=== PATIENT | male | born 1995 | race Hispanic/Latino ===

== ENCOUNTER → 2017-04-14 | Outpatient (CLI) | payer OTHER ==
[~2017-04-14] MED LIST: KETO10 PO; ONDA4TAB4 PO; TAMS-1 PO
== END | disposition home or self-care (01) ==
LOC: RAH 16:56
PROVIDERS: ATTEND Urology
DX: N20.2 Calculus of kidney with calculus of ureter (principal); M47.895 Other spondylosis, thoracolumbar region
CPT/HCPCS: 74018; 76100

== ENCOUNTER 2017-04-15 10:52 | Day surgery (SDC) | payer OTHER ==
[2017-04-15] VITALS (18 sets, daily range): BP systolic 109–127; BP diastolic 59–76
[~2017-04-15] VITALS: Ht 181.6 cm; Wt 103.9 kg
[2017-04-15] MEDS ORDERED: WATER FOR INJECTION,STERILE 20 ML VIAL ONE (13:01)
[2017-04-15] MEDS ORDERED: LACTATED RINGERS 1000ML 1,000 ML IV ONE (13:01)
[2017-04-15] MEDS: CEFAZOLIN SODIUM 1 GM VIAL ONE ×2 (13:15→15:20)
[2017-04-15] MEDS ORDERED: LACTATED RINGERS 1000ML 1,000 ML IV SCH (14:30)
[2017-04-15] MEDS ORDERED: ONDANSETRON HCL 4 MG/2 ML VIAL ONE (15:16)
[2017-04-15] MEDS ORDERED: DEXAMETHASONE SOD PHOSPHATE 10MG/ML 1ML VIAL ONE (15:16)
[2017-04-15] MEDS ORDERED: LIDOCAINE PF 2% 5ML ABBOJECT ONE (15:16)
[2017-04-15] MEDS ORDERED: GLYCOPYRROLATE 0.2 MG/ML 5 ML VIAL ONE (15:16)
[2017-04-15] MEDS ORDERED: PROPOFOL 10 MG/ML 20ML VIAL IV ONE (15:17)
[2017-04-15] MEDS ORDERED: MIDAZOLAM HCL 1 MG/ML 2ML VIAL ONE (15:17)
[2017-04-15] MEDS ORDERED: FENTANYL CITRATE PF 50 MCG/1 ML 2ML VIAL ONE (15:18)
== END 2017-04-15 18:15 | disposition home or self-care (01) ==
LOC: SUH 10:52 → DAH 10:52 → SUH 18:15
PROVIDERS: ATTEND Urology
DX: N20.2 Calculus of kidney with calculus of ureter (principal); Z98.890 Other specified postprocedural states
CPT/HCPCS: 50590; 74018; J0690; J1100; J2001; J2250; J2405; J2704; J3010; J3490; J7120

== ENCOUNTER → 2017-04-18 | Outpatient (CLI) | payer OTHER | END | disposition home or self-care (01) | LOC: RAH 13:13 | PROVIDERS: ATTEND Urology | DX: N20.2 Calculus of kidney with calculus of ureter (principal); K59.00 Constipation, unspecified | CPT/HCPCS: 74018; 76100 ==

== ENCOUNTER 2017-04-22 05:54 | Day surgery (SDC) | payer OTHER ==
[2017-04-21 15:00] VITALS: BP 152/70
[~2017-04-22] VITALS: Ht 180.3 cm; Wt 107.7 kg
[2017-04-22] VITALS (18 sets, daily range): BP systolic 99–120; BP diastolic 51–70
[2017-04-22] MEDS: CEFAZOLIN SODIUM 1 GM VIAL IVP SCH ×2 (06:00→07:00)
[2017-04-22] MEDS: LACTATED RINGERS 1000ML 1,000 ML IV SCH ×2 (06:44→07:00)
[2017-04-22] MEDS ORDERED: PROPOFOL 10 MG/ML 20ML VIAL IV ONE (06:50)
[2017-04-22] MEDS ORDERED: ONDANSETRON HCL 4 MG/2 ML VIAL ONE (06:50)
[2017-04-22] MEDS ORDERED: GLYCOPYRROLATE 0.2 MG/ML 5 ML VIAL ONE (06:50)
[2017-04-22] MEDS ORDERED: DEXAMETHASONE SOD PHOSPHATE 10MG/ML 1ML VIAL ONE (06:50)
[2017-04-22] MEDS ORDERED: SUCCINYLCHOLINE 200MG/10ML SYR ONE (06:50)
[2017-04-22] MEDS ORDERED: MIDAZOLAM HCL 1 MG/ML 2ML VIAL ONE (06:50)
[2017-04-22] MEDS ORDERED: NEOSTIGMINE METHYLSULFATE 1MG/ML IV ONE (06:50)
[2017-04-22] MEDS ORDERED: LIDOCAINE PF 2% 5ML ABBOJECT ONE (06:50)
[2017-04-22] MEDS ORDERED: FENTANYL CITRATE PF 50 MCG/1 ML 2ML VIAL ONE ×2 (06:51→07:12)
[2017-04-22] MEDS ORDERED: ISOVUE-370 50ML VIAL IV ONE (07:05)
[2017-04-22] MEDS ORDERED: SODIUM CHLORIDE 0.9% 10 ML VIAL ONE (07:31)
[2017-04-22] MEDS ORDERED: PHENYLEPHRINE HCL 10 MG/ML 1ML VIAL IV ONE (07:31)
[2017-04-22] MEDS ORDERED: ACETAMINOPHEN-CODEINE 300/30MG TAB ONE (09:23)
[2017-04-22] MEDS ORDERED: ACETAMINOPHEN-CODEINE 300/30MG TAB PO PRN (09:30)
== END 2017-04-22 10:01 | disposition home or self-care (01) ==
LOC: DAH 05:54
PROVIDERS: ATTEND Urology
DX: N20.1 Calculus of ureter (principal); E66.9 Obesity, unspecified; Z98.890 Other specified postprocedural states
CPT/HCPCS: 52332; 74420; A4218; A4358; A4600; A5113; C1758; C1769; C2617; J0330; J0690; J1100; J2001; J2250; J2370; J2405; J2704; J2710; J3010 ×2; J3490; J7120; Q9967

== ENCOUNTER → 2017-05-08 | Outpatient (CLI) | payer OTHER ==
[~2017-05-08] MED LIST changes: -KETO10 PO; -ONDA4TAB4 PO
== END | disposition home or self-care (01) ==
LOC: LAB 14:08
PROVIDERS: ATTEND Urology
DX: N20.0 Calculus of kidney (principal)
CPT/HCPCS: 81099

== ENCOUNTER 2018-07-04 07:28 | Emergency (ER) | payer OTHER ==
[2018-07-04] MEDS ORDERED: ONDANSETRON HCL 4 MG/2 ML VIAL ONE (07:56)
[2018-07-04] MEDS ORDERED: KETOROLAC TROMETHAMINE 30MG/ML ONE (07:56)
[2018-07-04 07:57] LABS: EOSINOPHILS % (AUTO) 9.1 % (0.0-8.0); HEMATOCRIT 43.8 % (42-54); LYMPHOCYTES % (AUTO) 27.1 % (21.0-51.0); MEAN CORPUSCULAR HEMOGLOBIN 29.7 pg (27.0-33.0); MEAN CORPUSCULAR HGB CONC 33.5 g/dL (32.0-36.0); MEAN CORPUSCULAR VOLUME 88.5 fL (80-100); MONOCYTES % (AUTO) 7.7 % (3.0-13.0); NEUTROPHILS % (AUTO) 55.1 % (40.0-77.0); PLATELET COUNT (AUTO) 278 K/uL (130-400); RED BLOOD CELL COUNT(AUTO) 4.95 MIL/uL (4.50-6.20); RED CELL DISTRIBUTION WIDTH 13.8 % (11.0-15.5)
[2018-07-04 08:02] LABS: APPEARANCE,URINE Clear (CLEAR); BILIRUBIN,URINE Negative (NEGATIVE); COLOR,URINE Yellow (YELLOW); GLUCOSE, URINE (UA) Negative (NEGATIVE); KETONES,URINE Negative (NEGATIVE); LEUKOCYTE ESTERASE ,URINE Negative (NEGATIVE); NITRATE,URINE Negative (NEGATIVE); OCCULT BLOOD,URINE Large (NEGATIVE); PROTEIN,URINE Negative (NEGATIVE)
[2018-07-04 08:08] LABS: CREATININE 0.9 mg/dL (0.5-1.5); POTASSIUM 3.7 mmol/L (3.5-5.1)
[2018-07-04 08:11] LABS: PARTIAL THROMBOPLASTIN TIME 30.8 SEC (26.3-35.5); PROTHROMBIN TIME 10.5 SEC (9.6-11.6)
[2018-07-04 08:14] LABS: ALBUMIN 3.9 g/dL (3.5-5.0); TOTAL PROTEIN, SERUM 7.6 g/dL (6.0-8.3)
[2018-07-04] MEDS ORDERED: TAMSULOSIN HCL 0.4 MG CAP.ER.24H ONE (08:34)
[2018-07-04] MEDS ORDERED: TRAMADOL HCL 50 MG TABLET ONE (08:37)
[2018-07-04 08:46] LABS: BACTERIA,URINE Rare /HPF (None Seen); RBC,URINE 26-50 /HPF (0-1)
[2018-07-04 08:47] LABS: WBC,URINE 0-1 /HPF (0-1)
[2018-07-04 08:48] LABS: SQUAMOUS EPITHELIAL CELL,UR None Seen /HPF (0-2)
== END 2018-07-04 09:19 | disposition home or self-care (01) ==
LOC: EDH 07:28
DX: N20.1 Calculus of ureter (principal); E79.0 Hyperuricemia without signs of inflammatory arthritis and tophaceous disease; Z88.1 Allergy status to other antibiotic agents
CPT/HCPCS: 36415; 74176; 80053; 81001; 82150; 83690; 84550; 85025; 85610; 85730; 96374; 96375; 99284; J1885; J2405

== ENCOUNTER 2018-07-29 17:17 | Emergency (ER) | payer OTHER ==
[2018-07-29] MEDS ORDERED: KETOROLAC TROMETHAMINE 30MG/ML ONE (17:32)
[2018-07-29] MEDS ORDERED: ONDANSETRON HCL 4 MG/2 ML VIAL ONE (17:32)
[2018-07-29 17:58] LABS: BASOPHILS % (AUTO) 0.2 % (0.0-5.0); EOSINOPHILS % (AUTO) 0.5 % (0.0-8.0); MEAN CORPUSCULAR HEMOGLOBIN 29.8 pg (27.0-33.0); MEAN CORPUSCULAR HGB CONC 34.5 g/dL (32.0-36.0); MEAN CORPUSCULAR VOLUME 86.6 fL (80-100); MONOCYTES % (AUTO) 3.8 % (3.0-13.0); NEUTROPHILS % (AUTO) 88.5 % (40.0-77.0); NUCLEATED RED BLOOD CELLS 0.1 % (0.0-0.19); PLATELET COUNT (AUTO) 296 K/uL (130-400); RED BLOOD CELL COUNT(AUTO) 5.19 MIL/uL (4.50-6.20); RED CELL DISTRIBUTION WIDTH 13.5 % (11.0-15.5); WHITE BLOOD COUNT (AUTO) 12.8 K/uL (4.8-10.8)
[2018-07-29 18:15] LABS: CREATININE 0.9 mg/dL (0.5-1.5); POTASSIUM 3.9 mmol/L (3.5-5.1)
[2018-07-29 18:34] LABS: APPEARANCE,URINE Clear (CLEAR); BILIRUBIN,URINE Negative (NEGATIVE); COLOR,URINE Yellow (YELLOW); GLUCOSE, URINE (UA) Negative (NEGATIVE); KETONES,URINE 15 mg/dL (NEGATIVE); LEUKOCYTE ESTERASE ,URINE Negative (NEGATIVE); NITRATE,URINE Negative (NEGATIVE); OCCULT BLOOD,URINE Large (NEGATIVE); PROTEIN,URINE POS 1+ mg/dL (NEGATIVE)
[2018-07-29 19:00] LABS: RBC,URINE 26-50 /HPF (0-1)
[2018-07-29 19:01] LABS: BACTERIA,URINE Rare /HPF (None Seen); MUCUS,URINE Few LPF (None Seen); SQUAMOUS EPITHELIAL CELL,UR Rare /HPF (0-2)
== END 2018-07-29 18:32 | disposition home or self-care (01) ==
LOC: EDH 17:17
DX: N23 Unspecified renal colic (principal); N13.30 Unspecified hydronephrosis; Z87.442 Personal history of urinary calculi; Z88.1 Allergy status to other antibiotic agents
CPT/HCPCS: 36415; 74176; 80048; 81001; 85025; 96374; 96375; 99285; J1885; J2405

== ENCOUNTER → 2018-08-17 | Outpatient (CLI) | payer OTHER | END | disposition home or self-care (01) | LOC: LAB 13:08 | PROVIDERS: ATTEND Urology | DX: N20.0 Calculus of kidney (principal) | CPT/HCPCS: 36415; 81099 ==

== ENCOUNTER → 2018-08-21 | Outpatient (CLI) | payer OTHER | END | disposition home or self-care (01) | LOC: RAH 13:03 | PROVIDERS: ATTEND Internal Medicine | DX: M54.41 Lumbago with sciatica, right side (principal); M54.42 Lumbago with sciatica, left side | CPT/HCPCS: 72100 ==

== ENCOUNTER → 2018-09-02 | Outpatient (CLI) | payer OTHER | END | disposition home or self-care (01) | LOC: RAH 11:52 | PROVIDERS: ATTEND Internal Medicine | DX: M54.40 Lumbago with sciatica, unspecified side (principal) | CPT/HCPCS: 72148 ==